=== PATIENT | female | born 1960 | race Caucasian/White ===

== ENCOUNTER 2016-12-28 23:02 | Emergency (ER) | payer OTHER ==
[~2016-12-28] VITALS: Ht 167.6 cm; Wt 81.4 kg
[~2016-12-28 23:02] MED LIST: HYDROCODON-ACE1 EAC7 PO; LANTUS 3 M100 UNITS1 SC; LISINOPRIL5 MG PO; NOVOLOG PE100 UNITS/ SC; ZOFRAN4 MG PO
[2016-12-28] MEDS ORDERED: CLEOCIN300 MG PO (23:23)
[2016-12-29 00:32] VITALS: BP 108/83
== END 2016-12-29 00:33 | disposition home or self-care (01) ==
LOC: EXP 23:02 → EME 23:02 → EXP 12-29 00:33
DX: L03.115 Cellulitis of right lower limb (principal); E11.9 Type 2 diabetes mellitus without complications; Z79.4 Long term (current) use of insulin
CPT/HCPCS: 99281; 99283